=== PATIENT | male | born 1950 | race Caucasian/White ===

== ENCOUNTER → 2016-11-17 | Outpatient (CLI) | payer MEDICARE, BC | END | disposition home or self-care (01) | LOC: LAB.NP 10:04 | PROVIDERS: ATTEND Family Medicine | DX: D51.3 Other dietary vitamin B12 deficiency anemia (principal); E55.9 Vitamin D deficiency, unspecified ==

== ENCOUNTER → 2016-11-28 | Outpatient (CLI) | payer MEDICARE ==
--- NOTE | 2016-11-28 13:54 | MRI ---
EXAM DESCRIPTION: MR LUMBAR SPINE WITHOUT IV CONTRAST CLINICAL HISTORY: 66 y/o M, RADICULOPATHY COMPARISON: December 30, 2013. TECHNIQUE: Multi planar, multi sequence imaging of the lumbar spine was acquired without IV contrast. FINDINGS: There is S-shaped scoliosis of the lumbar spine. Disc desiccation at all levels with intervertebral disc height loss from L2-3 through L5-S1. Combination of edematous fatty endplate changes noted at these levels. The conus terminates at L1-L2 and is unremarkable. L1-L2: Facet degeneration and ligamentum flavum thickening. No spinal canal or neural foraminal narrowing. L2-L3: Circumferential disk osteophyte complex, ligamentum flavum thickening and facet degeneration. The midline diameter of the spinal canal is narrowed to 8.6 mm. There is severe right and left neural foraminal narrowing. Likely contact of exiting bilateral L2 nerve roots. L3-L4: Circumferential disk osteophyte complex, ligamentum flavum thickening and facet degeneration. These findings decrease the AP diameter of the spinal canal to 8.6 mm. There is severe right and moderate left neural foraminal narrowing. There is contact of the exiting right L3 nerve root. L4-5: Severe facet degeneration, ligamentum flavum thickening and a circumferential disk osteophyte complex noted. The AP diameter of the spinal canal is narrowed to 6.6 mm. There is also severe narrowing of the lateral recesses along with severe transverse dimension narrowing of the spinal canal. The transverse dimension measures 4 mm in diameter. There is severe left neural foraminal narrowing and contact of the exiting left L4 nerve root. There is moderate right neural foraminal narrowing. L5-S1: Moderate facet degeneration ligamentum flavum thickening. Thickening of the right ligamentum flavum results in contact of the descending right S1 nerve root. The midline diameter of the spinal canal is adequate at 11 mm in spite of the disc osteophyte complex. There is moderate bilateral neural foraminal narrowing and possible contact the bilateral exiting L5 nerve roots. IMPRESSION: Today's exam demonstrates multilevel advanced degenerative change of the facets and intervertebral disc spaces. These findings result in spinal canal narrowing at L2-3, L3-4 and L4-5. There is multilevel neural foraminal narrowing noted with contact of the exiting right L3 nerve root, left L4 nerve root bilateral exiting L5 nerve roots the descending right S1 nerve root. These findings could result in radiculopathies if the patient is symptomatic. Electronically signed by: Rony Ochoa MD 11/28/2016 13:52
== END | disposition home or self-care (01) ==
LOC: MRI 08:52
PROVIDERS: ATTEND Family Medicine
DX: M54.16 Radiculopathy, lumbar region (principal)

== ENCOUNTER → 2016-12-16 | Outpatient (CLI) | payer MEDICARE ==
--- NOTE | 2016-12-16 09:07 | RAD ---
EXAM DESCRIPTION: Pelvis CLINICAL HISTORY: 66 yearsMale, HIP PAIN COMPARISON: None. IMPRESSION: Degenerative change of the lower lumbar spine. The pelvic ring appears intact on today's study. Degenerative change of the pubic symphysis. Symmetrical and unremarkable joint spaces within the hips. 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
--- NOTE | 2016-12-16 09:07 | RAD ---
EXAM DESCRIPTION: Hip,Right 2 Views CLINICAL HISTORY: 66 yearsMale, HIP PAIN COMPARISON: None. IMPRESSION: Degenerative change of the pubic symphysis. No joint space loss of the right hip. No fracture of the right hip noted. Electronically signed by: Rony Ochoa MD 12/16/2016 9:05 AM XM1 TANK DRIVER
== END | disposition home or self-care (01) ==
LOC: RAD 07:42
PROVIDERS: ATTEND Orthopaedic Surgery
DX: M25.551 Pain in right hip (principal)

== ENCOUNTER → 2017-07-24 | Outpatient (CLI) | payer MEDICARE, OTHER | END | disposition home or self-care (01) | LOC: GMAL 10:41 | PROVIDERS: ATTEND Family Medicine | DX: Z12.5 Encounter for screening for malignant neoplasm of prostate (principal) ==

== ENCOUNTER → 2017-07-31 | Outpatient (CLI) | payer MEDICARE, OTHER | END | disposition home or self-care (01) | LOC: GMAL 11:46 | PROVIDERS: ATTEND Family Medicine | DX: R53.83 Other fatigue (principal); R41.89 Other symptoms and signs involving cognitive functions and awareness ==

== ENCOUNTER → 2018-01-22 | Outpatient (CLI) | payer MEDICARE, OTHER | LOC: GMAL 13:09 | PROVIDERS: ATTEND Family Medicine | DX: E55.9 Vitamin D deficiency, unspecified (principal) ==

== ENCOUNTER → 2018-07-30 | Outpatient (CLI) | payer MEDICARE, OTHER | LOC: GMAL 11:16 | PROVIDERS: ATTEND Family Medicine | DX: D51.3 Other dietary vitamin B12 deficiency anemia (principal); Z12.5 Encounter for screening for malignant neoplasm of prostate | CPT/HCPCS: 82607; G0103 ==

== ENCOUNTER → 2018-10-15 | Outpatient (CLI) | payer MEDICARE | LOC: GMAL 10:51 | PROVIDERS: ATTEND Family Medicine | DX: Z01.810 Encounter for preprocedural cardiovascular examination (principal); R23.3 Spontaneous ecchymoses ==

== ENCOUNTER → 2019-11-21 | Outpatient (CLI) | payer MEDICARE, OTHER | LOC: GMAL 10:37 | PROVIDERS: ATTEND Family Medicine | DX: Z12.5 Encounter for screening for malignant neoplasm of prostate (principal) ==

== ENCOUNTER → 2020-03-12 | Outpatient (CLI) | payer MEDICARE, OTHER ==
--- NOTE | 2020-03-12 11:39 | US ---
EXAM DESCRIPTION: Extremity,Lower LT Arteries: Ultrasound. CLINICAL HISTORY: PAIN IN LEFT LOWER LEG COMPARISON: None. TECHNIQUE: Doppler evaluation of the left lower extremity arterial flow waveforms and velocities. FINDINGS: Arterial waveforms in the left lower extremity are all multiphasic.. . Comments: Normal velocities. IMPRESSION: Doppler evaluation of the left lower extremity arterial system showing no evidence of significant atherosclerotic occlusive disease. Electronically signed by: Beau Kelly MD 03/12/2020 11:37 AM CDT
== END ==
LOC: US 08:16
PROVIDERS: ATTEND Family Medicine
DX: M79.662 Pain in left lower leg (principal)

== ENCOUNTER → 2020-03-20 | Outpatient (CLI) | payer MEDICARE, OTHER ==
--- NOTE | 2020-03-20 15:19 | MRI ---
EXAM DESCRIPTION: MRI left knee CLINICAL HISTORY: Left knee pain. Generalized weakness. Knee pain when standing. COMPARISON: None. TECHNIQUE: Multiplanar, multisequence MR images of the left knee FINDINGS: Complex high-grade tear of the posterior horn medial meniscus near complete transection. Tear extends down to the tibial root without root detachment. Contiguous tear affecting the inferior articular surface at the posterior horn/body junction to the posterior body. Medial subluxation into the inferior medial gutter, coronal image 20-21. Medial femorotibial chondrosis. Full-thickness chondral thinning along the medial tibial margin subjacent to the meniscal tear with mild subchondral edema. Grade 3 chondrosis posterior weightbearing medial femoral condyle overlying the posterior horn meniscus. No subchondral marrow abnormality. Mild fraying of the inferior articular surface posterior horn lateral meniscus. Lateral femorotibial grade 2 chondrosis along the posterior weightbearing joint. No subchondral marrow abnormality Severe lateral facet patellofemoral osteoarthritis. Full-thickness chondral loss along both sides of the joint with bony remodeling and multifocal mild subchondral edema. A large remote well-corticated fragment, fractured osteophyte along the lateral patella measuring 2.2 x 1.7 x 1 cm. Intraligamentous ganglion of the ACL compatible with sequela of remote interstitial partial tear. A contiguous ganglion in the posterior intercondylar notch. PCL intact. MCL and fibular collateral ligament are intact Biceps femoris, popliteus and iliotibial band tendons are normal. Short segment mild proximal medial patellar tendinosis. Quadriceps tendon and tendons of the posterior medial knee are intact Moderate suprapatellar joint effusion with degenerative synovitis. Large intra-articular body within a posterior superior recess behind the femoral metaphysis measuring up to 2.3 cm IMPRESSION: Complex tear of the posterior horn medial meniscus, near complete transection. Contiguous tear of the posterior horn/body junction and posterior body with inferior medial subluxation of the meniscus Medial femorotibial chondrosis. Grade 4 chondrosis along the medial tibial margin subjacent to the meniscal tear Severe lateral facet patellofemoral osteoarthritis Mild fraying of the inferior articular surface lateral meniscus Intraligamentous ganglion in the ACL with a contiguous ganglion posterior superior intercondylar notch Electronically signed by: Kirill Holguin MD 03/20/2020 3:17 PM CDT
== END ==
LOC: MRI 11:23
PROVIDERS: ATTEND Family Medicine
DX: S83.242A Other tear of medial meniscus, current injury, left knee, initial encounter (principal); M17.12 Unilateral primary osteoarthritis, left knee; M23.301 Other meniscus derangements, unspecified lateral meniscus, left knee; M67.462 Ganglion, left knee

== ENCOUNTER → 2020-03-30 | Outpatient (CLI) | payer MEDICARE, OTHER ==
--- NOTE | 2020-03-30 10:06 | RAD ---
EXAM DESCRIPTION: Knee,Left Complete CLINICAL HISTORY: 69 years, Male, KNEE PAIN COMPARISON: March 20, 2020 MR left knee TECHNIQUE: Four views left knee FINDINGS: Four views left knee demonstrate moderately advanced degenerative disease, most prominent involving the lateral patellofemoral articulation with mild chondrocalcinosis of the lateral joint compartment and better preserved joint space medially and laterally. There is an unfused or partially fused accessory ossification center or less likely marked hypertrophic spur or accessory ossicle at the lateral superior margin of the patella. Intra-articular loose body is not entirely excluded. Review of the MR examination demonstrates this represents a separate ossific fragment consistent with a fractured osteophyte or intra-articular loose body or embedded in the lateral patellar retinaculum. No acute fracture of the knee noted. IMPRESSION: 1. Osteopenic and markedly degenerative knee with small joint effusion. 2. Most advanced degenerative changes involve the lateral patellofemoral articulation with large fractured osteophyte or accessory ossicle or less likely unfused accessory ossification center noted superolaterally. 3. No acute fracture or dislocation seen. Electronically signed by: Kirill Mandel MD 03/30/2020 10:05 AM CDT
--- NOTE | 2020-03-30 10:07 | RAD ---
EXAM DESCRIPTION: Pelvis CLINICAL HISTORY: 69 years Male, HIP PAIN COMPARISON: December 16, 2016 FINDINGS: Slight tilting of the pelvis towards the left is present. Right greater than left lower lumbar degenerative disc disease noted. The bony pelvis is intact. Mild hip degenerative arthropathy is present. No fracture or disruption of the bony pelvic ring noted. No hip osteonecrosis or other abnormalities seen. IMPRESSION: Stable unremarkable appearance of the pelvis. Electronically signed by: Kirill Mandel MD 03/30/2020 10:06 AM CDT
== END ==
LOC: RAD 07:51
PROVIDERS: ATTEND Orthopaedic Surgery
DX: M85.862 Other specified disorders of bone density and structure, left lower leg (principal); M17.12 Unilateral primary osteoarthritis, left knee; M89.8X6 Other specified disorders of bone, lower leg; M25.462 Effusion, left knee; M25.552 Pain in left hip

== ENCOUNTER → 2020-11-17 | Outpatient (CLI) | payer MEDICARE, OTHER | LOC: GMAL 10:59 | PROVIDERS: ATTEND Family Medicine | DX: D51.3 Other dietary vitamin B12 deficiency anemia (principal); E55.9 Vitamin D deficiency, unspecified; Z12.5 Encounter for screening for malignant neoplasm of prostate; Z79.899 Other long term (current) drug therapy; I10 Essential (primary) hypertension; E78.49 Other hyperlipidemia | CPT/HCPCS: 82306; 82607; G0103 ==